=== PATIENT | female | born 1945 | race Caucasian/White ===

== ENCOUNTER 2022-10-10 21:01 | Emergency (ER) | payer MEDICARE, SELFPAY ==
[2022-10-10 21:09] VITALS: BP 123/50; PULSE 67; RESP 18; TEMP 36.6; O2SAT 98; BMI 29.8
--- NOTE | 2022-10-10 21:29 | ECG_ITS ---
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 Measurements Intervals [place] Rate: 65 P: 74 CO: 172 QRS: 103 QRSD: 133 T: 56 QT: 426 QTc: 443 Interpretive Statements SINUS RHYTHM RIGHT AXIS DEVIATION [QRS AXIS > 100] RIGHT BUNDLE BRANCH BLOCK [120+ ms QRS DURATION, UPRIGHT V1, 40+ ms S IN I/aVL/V4/V5/V6] No previous ECG available for comparison Electronically Signed On 10-10-2022 23:20:50 CDT by Keyla Braden M.D. [id number] f
[2022-10-10 21:36] LABS: Basophils % 0.5 %; Eosinophils # 0.1 10^3/uL (0.0-0.8); Eosinophils % 1.2 %; Hemoglobin 11.4 g/dL (11.5-15.3); Lymphocytes # 3.1 10^3/uL (0.8-4.8); Lymphocytes % 42.3 %; Mean Corpuscular HGB Conc 31.7 g/dL (30.0-36.0); Mean Corpuscular Volume 94.7 fl (81-99); Mean Platelet Volume 11.2 fL (7.4-10.4); Monocytes # 0.3 10^3/uL (0.2-0.9); Monocytes % 4.4 %; Neutrophils # 3.75 10^3/uL (1.8-7.7); Neutrophils % 51.3 %; Nucleated Red Blood Cells % 0 %; Platelet Count 309 10^3/cmm (130-400); Red Cell Distribution Width 12.8 % (12.1-15.1); White Blood Count 7.3 10^3/uL (4.0-10.0)
[2022-10-10 21:40] VITALS: RESP 22; O2SAT 94
[2022-10-10] MEDS: morphine 4 mg/mL SDV 1 mL IVP (21:40)
[2022-10-10] MEDS: ondansetron 2 mg/ML SDV 2 mL 4 MG IVP (21:41)
[2022-10-10] MEDS: famotidine 20 mg/2 mL INJ IVP (21:41)
[2022-10-10 21:58] VITALS: BP 123/50; PULSE 68; RESP 23; O2SAT 95
[2022-10-10 22:14] LABS: Alanine Aminotransferase 12 U/L (0-33); Albumin Level 4.5 g/dL (3.5-5.2); Alkaline Phosphatase 111 U/L (35-105); Anion Gap 22.4 (5-19); Aspartate Amino Transferase 18 U/L (0-32); Blood Urea Nitrogen 31 mg/dL (8-23); Calcium 9.9 mg/dL (8.5-10.5); Carbon Dioxide 19 mmol/L (22-29); Chloride 104 mmol/L (98-107); Globulin 2.8 g/dL (1.3-4.6); Glucose 91 mg/dL (65-115); Lipase 47 U/L (13-60); Osmolality Calculated 298 mOsm/kg (285-295); Potassium 4.4 mmol/L (3.5-5.1); Sodium 141 mmol/L (136-145); Total Bilirubin 0.3 mg/dL (0.15-1.2); Total Protein 7.3 g/dL (6.6-8.7)
--- NOTE | 2022-10-10 22:25 | XRR_ITS ---
PROCEDURE INFORMATION: Exam: XR Abdomen Exam date and time: 10/10/2022 10:32 PM Clinical indication: Abdominal pain; Generalized; Patient HX: Diffuse abd pain with constipation; Additional info: Abd pain HX of constipation TECHNIQUE: Imaging protocol: Radiologic exam of the abdomen. Views: Frontal supine view of the abdomen. 1 View. COMPARISON: No relevant prior studies available. FINDINGS: Gastrointestinal tract: Increased fecal material in the ascending and descending colon. For example the descending colon measures approximately 8 cm in diameter. No small bowel distention. No evidence of pneumatosis. Bones/joints: Unremarkable. XR/XR KUB portable [id number] IMPRESSION: Diffusely increased fecal loading without generalized obstruction
--- NOTE | 2022-10-10 22:25 | XRR_ITS ---
PROCEDURE INFORMATION: Exam: XR Chest Exam date and time: 10/10/2022 10:32 PM Age: 76 years old Clinical indication: Chest pressure; Patient HX: Chest pain post near syncope; Additional info: Cp TECHNIQUE: Imaging protocol: Radiologic exam of the chest. Views: 1 view. COMPARISON: No relevant prior studies available. FINDINGS: Lungs: Unremarkable. No consolidation. Pleural spaces: Unremarkable. No pleural effusion. No pneumothorax. Heart/Mediastinum: Unremarkable. No cardiomegaly. Bones/joints: Unremarkable. XR/XR chest 1V portable [id number] IMPRESSION: Unremarkable
[2022-10-10 22:34] LABS: Troponin(5th) Baseline 19 ng/L (0-10)
--- NOTE | 2022-10-10 23:03 | ED_ITS ---
HPI - Abdominal Pain General: Chief Complaint: Abdominal Pain Stated Complaint: abd pain, CP Time Seen by Provider: 10/10/22 21:10 Source: patient History of Present Illness: 76-year-old female down from [facility] [place] visiting friends. She notes that she was in the bathroom, trying to have a bowel movement, and had significant mainly epigastric belly pain. While straining, she began to feel like she was going to pass out, and became diaphoretic. After EMS arrival, while standing to get on the cot, she had a brief episode of chest pain. She is a bit short of breath. She still complaining of belly pain. MD elicited complaint: abdominal pain Pertinent past history: constipation Onset (ago): minute(s) Pain Consistency: constant Location: Epigastric Severity: moderate Quality: cramping and stabbing Radiation: none Migration to: other Associated Symptoms: Reports change in stool character, constipation and nausea; Denies belching, bloating, chills, diarrhea, loose stools and vomiting Review of Systems Const: Denies: chills ENMT: Denies: throat pain Card: Reports: chest pain; Denies: palpitations Resp: Denies: dyspnea, productive cough or non-productive cough GI: Reports: abdominal pain, nausea, constipation and change in stool character; Denies: vomiting, diarrhea, bloating or belching Physical Exam Const: COMMON NORMALS: no acute distress GENERAL APPEARANCE: cooperative, anxious and frail appearing (Mildly) ORIENTATION/CONSCIOUSNESS: Yes awake HENMT: COMMON NORMALS: normocephalic, atraumatic and Normal external nose present HEAD & SCALP: normocephalic and atraumatic FACE & SINUS: normal f acial exam and face symmetric NOSE: Normal external nose present Eye: COMMON NORMALS: Equal, round and reactive pupils present and EOMs intact bilaterally PUPIL: Yes Equal, round and reactive pupils present Neck/C-Spine: GENERAL: Yes trachea midline Chest: CHEST: Yes Symmetrical chest wall rise Resp: COMMON NORMALS: normal respiratory effort, No retractions, No use of accessory muscles and clear to auscultation bilaterally AUSCULTATION: clear to auscultation bilaterally Cardio: COMMON NORMALS: regular rate and regular rhythm RATE: regular rate RHYTHM: regular rhythm GI: COMMON NORMALS: Normal to inspection, nondistended, normoactive bowel sounds present PALPATION: Yes Tenderness to palpation present (GI) (Epigastric) Extremity: COMMON NORMALS: no pedal edema Neuro: LUBA COMA SCALE: document GCS findings [place] coma scale eye opening: Spontaneous [place] coma scale verbal response: Orientated [place] coma scale motor response: Obey commands [place] coma scale total score: 15 SENSORY EXAM: Yes extremities (intact) Psych: COMMON NORMALS: speech normal SPEECH: Yes normal speech Skin: COMMON NORMALS: no rashes or lesions noted GENERAL SKIN EXAM: no rashes or lesions noted Course Vital Signs: Vital signs: Vital Signs Temperature 98.0 F 10/11/22 02:43 Pulse Rate 102 H 10/11/22 03:32 Respiratory Rate 20 H 10/11/22 03:32 Blood Pressure 132/55 10/11/22 03:32 Pulse Oximetry 98 10/11/22 03:32 Oxygen Delivery Me thod Nasal Cannula 10/11/22 03:32 Oxygen Flow Rate 2 10/11/22 03:32 MDM - Abdominal Pain Medical Decision Making 76-year-old female with a near syncopal episode while on the toilet at home. This was followed by some chest discomfort. She has had an episode of vomiting here. She is also had a large bowel movement here, relieving her constipation. Hemoglobin is 11. White blood cell count is 7. Creatinine is 1.4. First troponin was 19 consistent with a creatinine of 1.4. Her delta is not significant. Chest x-ray is not remarkable. KUB shows increased fecal load without obstruction. This was obviously prior to her bowel movements here. EKG shows a sinus rhythm with a right axis deviation, rate of 65, and no ST elevation or depression. She does have a right bundle branch block. Patient is patient still having bowel movements here. She is able to get up and transfer to the bedside commode. She has received fluid bolus. Blood pressure 130/61, heart rate 76, saturations 95% on room air with 18 respirations. After 2 L of fluid, the patient is feeling improved, is able to walk down the victor without assistance, and feeling like she can be discharged. She is dischar ge home. To return for any worsening symptoms. Lab Data 10/10/22 21:20 10/10/22 21:20 Labs/Radiology: Radiology Impressions Chest X-Ray 10/10/22 22:25 IMPRESSION: Unremarkable KUB X-Ray 10/10/22 22:25 IMPRESSION: Diffusely increased fecal loading without generalized obstruction Laboratory Results WBC 7.3 10^3/uL (4.0-10.0) 10/10/22 21:20 RBC 3.80 10^6/uL (4.1-5.3) L 10/10/22 21:20 Hgb 11.4 g/dL (11.5-15.3) L 10/10/22 21:20 Hct 36.0 % (37.0-47.0) L 10/10/22 21:20 MCV 94.7 fl (81-99) 10/10/22 21:20 MCH 30.0 pg (28.0-34.0) 10/10/22 21:20 MCHC 31.7 g/dL (30.0-36.0) 10/10/22 21:20 RDW 12.8 % (12.1-15.1) 10/10/22 21:20 Plt Count 309 10^3/cmm (130-400) 10/10/22 21:20 MPV 11.2 fL (7.4-10.4) H 10/10/22 21:20 Neut % (Auto) 51.3 % 10/10/22 21:20 Lymph % (Auto) 42.3 % 10/10/22 21:20 [place] % (Auto) 4.4 % 10/10/22 21:20 Eos % (Auto) 1.2 % 10/10/22 21:20 Baso % (Auto) 0.5 % 10/10/22 21:20 Neut # (Auto) 3.75 10^3/uL (1.8-7.7) 10/10/22 21:20 Lymph # (Auto) 3.1 10^3/uL (0.8-4.8) 10/10/22 21:20 [place] # (Auto) 0.3 10^3/uL (0.2-0.9) 10/10/22 21:20 Eos # (Auto) 0.1 10^3/uL (0.0-0.8) 10/10/22 21:20 Baso # (Auto) 0.0 10^3/uL (0.0-0.1) 10/10/22 21:20 Nucleated RBC % (auto) 0 % 10/10/22 21:20 Nucleated RBCs # 0.0 /100WBC 10/10/22 21:20 Sodium 141 mmol/L (136-145) 10/10/22 21:20 Potassium 4.4 mmol/L (3.5-5.1) 10/10/22 21:20 Chloride 104 mmol/L (98-107) 10/10/22 21:20 Carbon Dioxide 19 mmol/L (22-29) L 10/10/22 21:20 Anion Gap 22.4 (5-19) H 10/10/22 21:20 BUN 31 mg/dL (8-23) H 10/10/22 21:20 Creatinine 1.4 mg/dL (0.5-0.9) H 10/10/22 21:20 GFR Calculation Not Reportable 10/10/22 21:20 Glucose 91 mg/dL (65-115) 10/10/22 21:20 Calculated Osmolality 298 mOsm/kg (285-295) H 10/10/22 21:20 Calcium 9.9 mg/dL (8.5-10.5) 10/10/22 21:20 Total Bilirubin 0.3 mg/dL (0.15-1.2) 10/10/22 21:20 AST 18 U/L (0-32) 10/10/22 21:20 ALT 12 U/L (0-33) 10/10/22 21:20 Alkaline Phosphatase 111 U/L (35-105) H 10/10/22 21:20 Troponin T Baseline 19 ng/L (0-10) H 10/10/22 21:20 Troponin T 120 Minute 16.10 ng/L (0-10) H 10/10/22 23:45 Delta Troponin T -2.90 ABS# (0-10) L 10/10/22 23:45 Total Protein 7.3 g/dL (6.6-8.7) 10/10/22 21:20 Albumin 4.5 g/dL (3.5-5.2) 10/10/22 21:20 Globulin 2.8 g/dL (1.3-4.6) 10/10/22 21:20 Lipase 47 U/L (13-60) 10/10/22 21:20 Discharge Plan Discharge Patient Disposition: Home Clinical Impression: Abdominal pain, Gastroenteritis Condition: Stable Prescriptions: New ondansetron 4 mg film 4 mg PO DAILY PRN (Reason: nausea and vomiting) Qty: 10 0RF Discharge Orders: Discharge ED (Routine); Ordered 10/11/22 Ordered By: Con Celis Patient Instructions: Gastroenteritis (ED), Abdominal Pain (ED) Activity Restrictions/Additional Instructions: Return for significant fever greater than 100, vomiting liquids or medications, blood in the stool, worsening abdominal pain, repeated episodes of syncope or passing out, other concerning symptoms. See your doctor next week. Take nausea medication scheduled for the next 24 hours, every 6 hours, then as needed benny mcdonald. Coding Level of Care Code ED Bus Driver Supervisor for Bridget Frye
[2022-10-10] MEDS: metoclopramide 5 mg/mL SDV 2 mL 10 MG IVP (23:23)
--- NOTE | 2022-10-10 23:29 | ECG_ITS ---
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 Measurements Intervals [place] Rate: 68 P: 77 [place]: 169 QRS: 103 QRSD: 139 T: 59 QT: 427 QTc: 456 Interpretive Statements SINUS RHYTHM RIGHT AXIS DEVIATION [QRS AXIS > 100] RIGHT BUNDLE BRANCH BLOCK [120+ ms QRS DURATION, UPRIGHT V1, 40+ ms S IN I/aVL/V4/V5/V6] No previous ECG available for comparison Electronically Signed On 10-11-2022 11:08:27 CDT by Keyla Braden M.D. [id number]
[2022-10-11] VITALS (7 sets, daily range): BP systolic 130–155; BP diastolic 55–74; PULSE 75–116; RESP 18–22; TEMP 36.7; O2SAT 90–99
[2022-10-11] MEDS: sodium chloride 0.9% 1,000 ML 999 ML IV ×2 (00:10→02:37)
== END 2022-10-11 04:38 | disposition home or self-care (01) ==
PROVIDERS: Emergency Provider Emergency Medicine
DX: K52.9 Noninfective gastroenteritis and colitis, unspecified (principal); R10.9 Unspecified abdominal pain; R07.9 Chest pain, unspecified; I45.10 Unspecified right bundle-branch block
CPT/HCPCS: 36415; 71045; 74018; 80053; 83690; 84484; 85025; 93005; 96361; 96374; 96375; 99285; J2270; J2405; J2765; J3490; J7030